=== PATIENT | female | born 1970 | race Caucasian/White ===

== ENCOUNTER 2019-11-29 21:52 | Observation (INO) | payer MEDICARE, MEDICAID, SELFPAY ==
--- NOTE | ~2019-11-29 | US_ITS ---
EXAMINATION: US carotid duplex BI DATE: 11/30/2019 11:01 INDICATION: Weakness, sudden onset dizziness/presyncope, left shoulder pain TECHNIQUE: Grayscale, color Doppler, and pulsed Doppler images of the cervical carotid arteries were obtained. The degree of vessel stenosis is placed in one of the following categories: normal, <50%, 5 0-69%, >=70% but less than near-occlusion, near-occlusion, or total occlusion. Note that percent sten osis relative to normal distal artery lumen diameter is indirectly measured from velocity measurement s as described by Pancho, et al. Radiology 2003; 229:340-346. COMPARISON: None. FINDINGS: RIGHT: The right common carotid artery (CCA) peak systolic velocity (PSV) is 72 cm/s. The right internal car otid artery (ICA) PSV is 46 cm/s. The right ICA end-diastolic velocity (EDV) is 24 cm/s. The right IC A/CCA PSV ratio is 0.6. Grayscale and color Doppler images of the straight no appreciable stenosis or plaque in the ICA. The external carotid artery (ECA) PSV is 76 cm/s. There is antegrade flow in the right vertebral artery. LEFT: The left CCA PSV is 63 cm/s. The left ICA PSV is 54 cm/s. The left ICA EDV is 26 cm/s. The left ICA/C CA PSV ratio is 0.9. Grayscale and color Doppler images demonstrate no appreciable stenosis or plaque in the ICA. The ECA PSV is 90 cm/s. There is antegrade flow in the left vertebral artery. IMPRESSION: 1. No appreciable plaque or stenosis in the right internal carotid artery. 2. No appreciable plaque or stenosis in the left internal carotid artery. Reviewed, dictated and finalized at location A. ER ROD MILL
--- NOTE | ~2019-11-29 | XR_ITS ---
EXAMINATION: XR chest 2V DATE: 11/29/2019 23:09 INDICATION: Near syncope, dizziness TECHNIQUE: AP and lateral views of the chest are obtained. COMPARISON: None available FINDINGS: The lungs are free of acute opacities. There is no pleural effusion or pneumothorax. The ca rdiomediastinal silhouette is normal. There is mild thoracic spondylosis. Healed left-sided rib fract ures are noted. IMPRESSION: 1. No acute cardiopulmonary abnormality. Reviewed, dictated and finalized at location A. IT NEGOTIATOR
--- NOTE | ~2019-11-29 | CT_ITS ---
EXAMINATION: CT brain wo con DATE: 11/30/2019 02:15 INDICATION: Dizziness. TECHNIQUE: Computed tomography (CT) of the head was performed without intravenous contrast. The mA wa s adjusted according to patient size. Iterative reconstruction technique was employed. The dose-lengt h product was 529.67 mGy-cm. COMPARISON: None FINDINGS: There is no intracranial hemorrhage, acute infarction, or abnormal intracranial mass lesion . The ventricles are normal in size. The paranasal sinuses are clear. The mastoid air cells are kamala l. IMPRESSION: 1. Normal brain. Reviewed, dictated and finalized at location A. TOZOOLOGIST IMPRESSION: 1. Normal brain.
--- NOTE | ~2019-11-29 | XR_ITS ---
EXAMINATION: XR shoulder LT min 2V INDICATION: Left shoulder pain TECHNIQUE: Four views of the left shoulder are obtained. COMPARISON: None available FINDINGS: Bone alignment is normal. There is no acute fracture. There is a questionable lucent lesion with sclerotic margins involving the body of the scapula. Healed left-sided rib fractures are noted. IMPRESSION: 1. No acute osseous abnormality. 2. Questionable lucent lesion of the scapular body with sclerotic margin. Follow-up with CT is recomm ended. Reviewed, dictated and finalized at location A. DE ACCOUNT EXECUTIVE IMPRESSION: 1. No acute osseous abnormality. 2. Questionable lucent lesion of the scapular body with sclerotic margin. Follo w-up with CT is recommended.
--- NOTE | 2019-11-29 21:58 | ED.DIZZY ---
HPI - Dizziness General Chief Complaint: Dizziness Stated Complaint: near syncope Time Seen by Provider: 11/29/19 21:55 Source: patient and RN notes reviewed Mode of arrival: EMS Limitations: no limitations History of Present Illness HPI Narrative: Pt is a 49 y/o female who presents to the ED, via EMS from [facility], with c/o sudden onset dizziness that began earlier afternoon. Per nurse, pt was at the office to take her medications and she began to feel dizzy. Pt sat to the floor, but denies a syncopal episode. Pt denies a recent use of abx and any injuries. Pt also reports weakness, left shoulder pain, and chronic diarrhea, but denies CP, SOB, nausea, and ABD pain. MD elicited complaint: dizziness Onset (ago): hour(s) Timing: sudden onset Description: near-syncope Associated symptoms: weakness and other (chronic diarrhea, left shoulder pain) Related Data Home Medications Medication Instructions Recorded Confirmed atorvastatin 80 mg PO DAILY 11/30/19 11/30/19 citalopram 20 mg PO DAILY 11/30/19 11/30/19 hydroxyzine HCl 25 mg PO BID PRN 11/30/19 11/30/19 lisinopril 20 mg PO DAILY 11/30/19 11/30/19 melatonin 5 mg PO HS PRN 11/30/19 11/30/19 metformin 500 mg PO BID 11/30/19 11/30/19 naproxen 500 mg PO BID PRN 11/30/19 11/30/19 trazodone 50 mg PO HS 11/30/19 11/30/19 triamcinolone acetonide 1 applic TOPICAL BID PRN 11/30/19 11/30/19 Allergies Allergy/AdvReac Type Severity Reaction Status Date / Time amoxicillin Allergy Unknown Unknown Verified 11/29/19 22:20 hydromorphone Allergy Unknown Unknown Verified 11/29/19 22:20 Sulfa (Sulfonamide Allergy Unknown Unknown Verified 11/29/19 22:20 Antibiotics) Review of Systems Review of Systems: All systems reviewed & are unremarkable except as noted in HPI and below Cardiovascular: Cardiovascular: Denies chest pain Respiratory: Respiratory: Denies dyspnea Gastrointestinal: Gastrointestinal: Denies abdominal pain, Reports diarrhea (chronic) and Denies nausea Musculoskeletal: Musculoskeletal: Reports other (left shoulder pain) Neurologic: Reports dizziness, Denies syncope and Reports weakness PMFSH Past Medical History Medical History (Updated 11/30/19 @ 07:12 by Sirisha Cook MD) Depression Diabetes Diverticulitis Hyperlipidemia Pancreatitis Ventral hernia Surgical History Surgical History (Updated 11/29/19 @ 22:10 by Latasha Galindo) H/O hernia repair History of pancreatectomy Hx of cholecystectomy Family History Family History (Updated 04/27/19 @ 10:36 by DOCTOR UNKNOWN) Mother Family history of thyroid disease Diabetes mellitus Hypertension Family history of cardiovascular disease Family history of malignant neoplasm of thyroid Father Diabetes mellitus Other Family history of gout Social History Social History Smoking status: Never smoker Alcohol intake: never Substance use: never Gender identity (if verbalized by the patient): Female Spiritual care concerns: No Agree to blood products: Yes Exam Narrative: Exam Narrative: GENERAL: Well-appearing, well-nourished, and in no acute distress. HEAD: Normocephalic, atraumatic EYES: PERRLA and EOMI, conjunctiva clear without discharge EARS: TM's clear bilaterally without erythema or dullness NOSE: Nares clear, no rhinorrhea or epistaxis THROAT:Mucous membranes moist, Oropharynx normal without erythema, exudate, peritonsillar swelling or fluctuance NECK: Supple, without lymphadenopathy or mass RESPIRATORY: No respiratory distress, Airway patent, Respirations non-labored, Clear to auscultation without rales, rhonchi or wheeze HEART: Regular rate and rhythm. No murmur heard. Normal peripheral pulses. ABDOMEN: Soft, nontender, nondistended, normal active bowel sounds. No masses. No rebound or guarding, No organomegaly. old mid abdominal scar EXTREMITIES: No edema, normal strength with full range of motion. SKIN: Warm, dry, normal color without rash NEURO
[2019-11-29 22:00] VITALS: BP 123/76; PULSE 57; RESP 12; TEMP 36.7; O2SAT 98
--- NOTE | 2019-11-29 22:13 | ECG_ITS ---
Measurements Intervals [place] Rate: 59 P: 54 MA: 178 QRS: -16 QRSD: 86 T: 3 QT: 423 QTc: 420 Interpretive Statements SINUS BRADYCARDIA NONSPECIFIC ST & T-WAVE ABNORMALITY- ANT/INF LEADS BASELINE ARTIFACT- I, II, III, V1 BORDERLINE ECG Electronically Signed On 11-30-2019 7:01:31 FOOD QUALITY TECHNICIAN by Will Smallwood D.O.
[2019-11-29 22:29] LABS: Basophils Absolute Auto 0.1 K/mm3 (0.0-0.1); Basophils Percent Auto 0.8 % (0.2-1.2); Eosinophils Absolute Auto 0.2 K/mm3 (0-0.3); Eosinophils Percent Auto 2.1 % (0-4.4); Hematocrit 36.2 % (37.0-47.0); Hemoglobin 11.2 g/dL (12.0-15.0); Immature Granulocyte Absolute 0.02 K/mm3 (0.00-0.031); Immature Granulocyte Percent A 0.2 % (0-0.5); Lymphocytes Absolute Auto 2.71 K/mm3 (0.9-3.2); Mean Corpuscular HGB Conc 30.9 g/dl (32-36); Mean Corpuscular Hemoglobin 25.9 pg (26-34); Mean Corpuscular Volume 83.8 fl (80-100); Mean Platelet Volume 10.1 fl (7.4-10.4); Monocytes Absolute Auto 0.6 K/mm3 (0.1-0.6); Monocytes Percent Auto 6.6 % (2.6-8.5); Neutrophils Absolute Auto 4.9 K/mm3 (1.3-6.7); Neutrophils Percent Auto 58.3 % (45.5-73.1); Platelet Count Result 264 k/mm3 (150-375); Red Blood Count 4.32 M/mm3 (4.2-5.4); Red Cell Distribution Width 14.7 % (11.5-14.5); White Blood Count 8.5 K/mm3 (4.5-10.0)
[2019-11-29] MEDS: ONDANSETRON INJ 4 MG/2 ML VIAL IV PUSH (22:30)
[2019-11-29 22:39] LABS: INR 1.1; Partial Thromboplastin Time 28.2 SECONDS (22.3-36.8); Prothrombin Time 13.4 Seconds (11.1-14.7)
[2019-11-29 22:41] LABS: Alanine Aminotransferase 15 U/L (4-35); Albumin Level 3.9 g/dL (3.5-5.1); Alkaline Phosphatase 99 U/L (38-126); Aspartate Amino Transferase 21 U/L (14-36); Bilirubin,Total 0.5 mg/dL (0.2-1.3); Blood Urea Nitrogen 5 mg/dL (7-17); Calcium 8.2 mg/dL (8.4-10.2); Carbon Dioxide 22 mmol/L (22-30); Chloride 96 mmol/L (98-107); Estimated Glomerular Filt Rate > 60; Glucose 223 mg/dL (65-105); Magnesium 0.9 mg/dL (1.6-2.3); Potassium 3.5 mmol/L (3.4-5.0); Sodium 138 mmol/L (137-145)
[2019-11-29 22:48] VITALS: BP 113/85; BP 118/87; BP 120/107; PULSE 60; PULSE 70
[2019-11-29 22:52] LABS: Add Urine Microscopic? YES; Appearance Urine Clear (Clear); Bacteria Urine Trace /hpf; Bilirubin Urine Negative (Negative); Blood Urine Negative (Negative); Color Urine Yellow (Yellow); Glucose Urine UA Negative (Negative); Ketones Urine Negative (Negative); Leukocyte Esterase Ur Trace LEU/UL (Negative); Mucus Urine Rare /lpf; Nitrate Urine Negative (Negative); Protein Urine Negative (Negative); RBC Urine 0-2 /hpf (0-2); Specific Grav Ur 1.011 (1.001-1.035); Squamous Epithelial Cell Urine Rare /hpf (Few); Urobilinogen Urine Negative mg/dL (<2.0); WBC Urine 0-3 /hpf
[2019-11-29 23:19] VITALS: BP 113/85; PULSE 70; RESP 11; O2SAT 100
[2019-11-30] VITALS (7 sets, daily range): BP systolic 84–138; BP diastolic 59–95; PULSE 49–56; RESP 10–20; TEMP 36.1–36.7; O2SAT 97–99; BMI 29.5
[2019-11-30] MEDS: LACTATED RINGERS 1,000 ML 999 ML IV CONT ×2 (00:36→02:45)
[2019-11-30] MEDS: MAGNESIUM SULF 4 GM/WATER100ML 4 GM/100 ML BAG IVPB (00:36)
[2019-11-30 04:51] LABS: Magnesium 2.5 mg/dL (1.6-2.3)
[2019-11-30 05:01] LABS: Amphetamine Screen Urine Negative (Negative); Barbiturate Screen Urine Negative (Negative); Benzodiazepines Screen Urine Negative (Negative); Cannabinoid Screen Urine Negative (Negative); Cocaine Screen Urine Negative (Negative); Methadone Screen Urine Negative (Negative); Opiate Screen Urine Negative (Negative); Phencyclidine Screen Urine Negative (Negative)
--- NOTE | 2019-11-30 05:16 | ADMGEN ---
This patient, Ratna Hayden, was admitted to 3 [facility] Surg Room 304-01. Patient/family oriented to hospital policies and general routines including ID bracelet, bed and alarms, visiting hours, pain management, procedures, bathroom and other care routines, personal items, smoking policy, room service/diet, and visiting hours. Valuables list has been completed. Information on how to activate the Rapid Response Team has been discussed. Patient/Family are encouraged to report perceived risks to care and to ask questions if they do not understand what they are told or what they should do.
[2019-11-30] MEDS: metFORMIN HCL XR 500 MG TAB.SR.24H PO (09:17)
[2019-11-30] MEDS: ATORVASTATIN 40 MG TABLET 80 MG PO (09:17)
[2019-11-30] MEDS: CITALOPRAM HYDROBROMIDE 20 MG TABLET PO (09:18)
[2019-11-30] MEDS: lisinopriL 20 MG TABLET PO (09:18)
[2019-11-30 09:38] LABS: Blood Urea Nitrogen 4 mg/dL (7-17); Calcium 8.2 mg/dL (8.4-10.2); Carbon Dioxide 23 mmol/L (22-30); Chloride 101 mmol/L (98-107); Estimated CRCL calculation 65 ml/min; Estimated Glomerular Filt Rate > 60; Glucose 130 mg/dL (65-105); Potassium 3.6 mmol/L (3.4-5.0); Sodium 138 mmol/L (137-145)
[2019-11-30 09:40] LABS: Glucose Point of Care 132 (65-105)
[2019-11-30 14:05] LABS: Glucose Point of Care 123 (65-105)
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
== END 2019-11-30 17:00 | disposition home or self-care (01) ==
LOC: ANHED 22:15 → ANH3MEDSUR 11-30 04:16
PROVIDERS: Physician Assistant; Admitting Provider Family Medicine; Emergency Provider General Practice; PCP Internal Medicine; Visit Provider Internal Medicine
DX: R42 Dizziness and giddiness (principal); R55 Syncope and collapse; I95.9 Hypotension, unspecified; D64.9 Anemia, unspecified; E11.9 Type 2 diabetes mellitus without complications; I10 Essential (primary) hypertension; E78.5 Hyperlipidemia, unspecified; F41.9 Anxiety disorder, unspecified; F32.9 Major depressive disorder, single episode, unspecified; R19.7 Diarrhea, unspecified; M25.512 Pain in left shoulder; Z79.84 Long term (current) use of oral hypoglycemic drugs; Z79.899 Other long term (current) drug therapy
CPT/HCPCS: 36415; 70450; 71046; 73030; 80048; 80053; 80307; 81001; 81025; 83735; 85025; 85610; 85730; 93005; 93880; 96365; 96375; 99285; A9270; G0378; J0131; J2405; J3475; J7120

== ENCOUNTER 2019-12-09 19:02 | Emergency (ER) | payer MEDICARE, MEDICAID, SELFPAY ==
--- NOTE | ~2019-12-09 | CT_ITS ---
EXAMINATION: CT abdomen pelvis wo con DATE: 12/09/2019 19:45 INDICATION: Abdominal pain for one day. Diarrhea. TECHNIQUE: Computed tomography (CT) of the abdomen and pelvis was performed without intravenous contr ast. The dose-length product was 644.96 mGy-cm. Automated exposure control and iterative reconstructi on technique were employed. COMPARISON: None. FINDINGS: Lung bases are unremarkable. Heart size normal. No significant pleural or pericardial effus ion. Moderate size hiatal hernia. There is a widemouth ventral abdominal wall hernia containing nonob structed bowel. No significant pleural or pericardial effusion. The liver, spleen, pancreas, adrenal glands and kidneys are unremarkable. No renal/ureteral stones. M ild nonspecific bilateral perinephric stranding. Bladder is decompressed. There is bladder wall thick ening with mild perivesical fatty infiltration, suspicious for cystitis. No acute bone or joint abnor mality. No evidence for bowel obstruction. Colonic diverticula without evidence for diverticulitis. N o significant vascular abnormality. No lymphadenopathy. IMPRESSION: 1. Bladder wall thickening with mild perivesical fatty infiltration, suspicious for cystitis. Correla te clinically. 2: Widemouth ventral abdominal wall hernia containing nonobstructed bowel. 3: Moderate hiatal hernia. Reviewed, dictated and finalized at location A. BOARD POSTER IMPRESSION: 1. Bladder wall thickening with mild perivesical fatty infiltration, suspicious for cystitis. Correlate clinically. 2: Widemouth ventral abdominal wall hernia containing nonobstructed bowel. 3: Moderate hiatal hernia.
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
[2019-12-09 19:11] VITALS: BP 118/75; PULSE 74; RESP 14; TEMP 37.4; O2SAT 97
--- NOTE | 2019-12-09 19:13 | ECG_ITS ---
Measurements Intervals [place] Rate: 71 P: 27 ND: 145 QRS: 5 QRSD: 75 T: -1 QT: 347 QTc: 379 Interpretive Statements SINUS RHYTHM BORDERLINE ST-T WAVE ABNORMALITY- ANT/INF LEADS BASELINE WANDER- V2 BORDERLINE ECG Electronically Signed On 12-10-2019 8:36:06 NYLON WINDER by Will Smallwood D.O.
[2019-12-09 19:43] LABS: Basophils Percent Auto 0.4 % (0.2-1.2); Eosinophils Percent Auto 0.3 % (0-4.4); Hematocrit 33.2 % (37.0-47.0); Hemoglobin 10.3 g/dL (12.0-15.0); Immature Granulocyte Absolute 0.04 K/mm3 (0.00-0.031); Immature Granulocyte Percent A 0.4 % (0-0.5); Lymphocytes Absolute Auto 1.13 K/mm3 (0.9-3.2); Lymphocytes Percent Auto 10.6 % (18.3-44.2); Mean Corpuscular Hemoglobin 26.4 pg (26-34); Mean Corpuscular Volume 85.1 fl (80-100); Mean Platelet Volume 9.4 fl (7.4-10.4); Monocytes Absolute Auto 1.2 K/mm3 (0.1-0.6); Monocytes Percent Auto 10.8 % (2.6-8.5); Neutrophils Absolute Auto 8.3 K/mm3 (1.3-6.7); Neutrophils Percent Auto 77.5 % (45.5-73.1); Platelet Count Result 298 k/mm3 (150-375); Red Cell Distribution Width 14.6 % (11.5-14.5); White Blood Count 10.6 K/mm3 (4.5-10.0)
--- NOTE | 2019-12-09 19:43 | PC.NURSE ---
pt taken to CT Scan
[2019-12-09 19:57] LABS: Alanine Aminotransferase 12 U/L (4-35); Albumin Level 3.8 g/dL (3.5-5.1); Alkaline Phosphatase 90 U/L (38-126); Aspartate Amino Transferase 16 U/L (14-36); Bilirubin,Total 0.5 mg/dL (0.2-1.3); Blood Urea Nitrogen 9 mg/dL (7-17); Calcium 8.7 mg/dL (8.4-10.2); Carbon Dioxide 31 mmol/L (22-30); Chloride 95 mmol/L (98-107); Estimated CRCL calculation 58 ml/min; Estimated Glomerular Filt Rate 58; Glucose 314 mg/dL (65-105); Lipase 20 U/L (23-300); Potassium 5.1 mmol/L (3.4-5.0); Sodium 135 mmol/L (137-145)
[2019-12-09 20:11] LABS: Add Urine Microscopic? YES; Appearance Urine Cloudy (Clear); Bacteria Urine Trace /hpf; Bilirubin Urine Negative (Negative); Blood Urine 1+ (Negative); Color Urine Yellow (Yellow); Glucose Urine UA 2+ mg/dL (Negative); Ketones Urine Negative (Negative); Leukocyte Esterase Ur 3+ LEU/UL (Negative); Nitrate Urine Negative (Negative); Protein Urine 2+ mg/dL (Negative); Specific Grav Ur 1.014 (1.001-1.035); Squamous Epithelial Cell Urine Few /hpf (Few); WBC Clumps Urine Present /HPF; WBC Urine >75 /hpf
[2019-12-09] MEDS: SODIUM CHLORIDE 0.9% IV 1,000 ML 999 ML IV CONT (20:46)
[2019-12-09] MEDS: PROMETHAZINE HCL 25 MG/ML AMPUL 12.5 MG IV PUSH (20:46)
[2019-12-09] MEDS: KETOROLAC 30 MG/ML VIAL (*BKC) IV PUSH (20:46)
[2019-12-09 21:31] VITALS: BP 96/75; PULSE 72; RESP 16; O2SAT 100
[2019-12-09] MEDS: LACTATED RINGERS 1,000 ML 999 ML IV CONT (22:20)
[2019-12-09 22:50] VITALS: BP 111/77; PULSE 66; RESP 14
== END 2019-12-09 22:51 | disposition home or self-care (01) ==
PROVIDERS: Emergency Provider Emergency Medicine; PCP Internal Medicine
DX: N30.01 Acute cystitis with hematuria (principal); E11.65 Type 2 diabetes mellitus with hyperglycemia; E78.5 Hyperlipidemia, unspecified; I10 Essential (primary) hypertension; F32.9 Major depressive disorder, single episode, unspecified; Z79.84 Long term (current) use of oral hypoglycemic drugs; K43.9 Ventral hernia without obstruction or gangrene; K44.9 Diaphragmatic hernia without obstruction or gangrene; R94.31 Abnormal electrocardiogram [ECG] [EKG]
CPT/HCPCS: 36415; 74176; 80053; 81001; 83690; 85025; 87077; 87086; 87088; 87186; 93005; 96361; 96365; 96375; 99284; J0696; J1885; J2550; J7030; J7120

== ENCOUNTER 2020-03-27 12:11 | Outpatient (CLI) | payer MEDICARE, MEDICAID, SELFPAY ==
[2020-03-27 13:15] LABS: Add Urine Microscopic? YES; Appearance Urine Cloudy (Clear); Bacteria Urine 4+ /hpf; Bilirubin Urine Negative (Negative); Blood Urine Negative (Negative); Color Urine Red (Yellow); Glucose Urine UA Negative (Negative); Ketones Urine Negative (Negative); Leukocyte Esterase Ur 3+ LEU/UL (Negative); Mucus Urine Rare /lpf; Nitrate Urine Negative (Negative); Protein Urine Negative (Negative); Specific Grav Ur 1.012 (1.001-1.035); Squamous Epithelial Cell Urine Many /hpf (Few); Urobilinogen Urine Negative mg/dL (<2.0)
== END 2020-03-27 12:12 | disposition home or self-care (01) ==
PROVIDERS: PCP Family Medicine; Visit Provider Family Medicine
DX: R30.9 Painful micturition, unspecified (principal)
CPT/HCPCS: 81001

== ENCOUNTER 2020-06-06 19:26 | Emergency (ER) | payer MEDICARE, MEDICAID, SELFPAY ==
--- NOTE | ~2020-06-06 | CT_ITS ---
EXAMINATION: CT brain wo con DATE: 06/06/2020 20:16 INDICATION: Lightheadedness. Dizziness. TECHNIQUE: Computed tomography (CT) of the head was performed without intravenous contrast. Sagittal and coronal reconstructions were performed. The mA was adjusted according to patient size. Iterative reconstruction technique was employed. The dose-length product was 529.67 mGy-cm. COMPARISON: head CT dated 11/30/2019 FINDINGS: No acute intracranial hemorrhage, acute infarction or abnormal extra axial fluid collection. Ventric les are normal and symmetric. No mass/mass effect. Opacification of a right-sided Bryant cell. Remain xiomara of the paranasal sinuses are clear. The orbits and mastoid air cells are normal. IMPRESSION: 1. No acute intracranial process. Reviewed, dictated and finalized at location A.
--- NOTE | ~2020-06-06 | XR_ITS ---
EXAMINATION: XR chest 1V portable DATE: 06/06/2020 20:21 INDICATION: Dizziness. Hypertension. Diabetes. TECHNIQUE: frontal view of the chest was obtained. COMPARISON: Chest radiograph dated 11/29/2019 FINDINGS: The lungs remain clear with no focal airspace opacities, pulmonary edema, pleural effusion or pneumot horax. The cardiomediastinal silhouette is normal. Couple old healed bilateral rib fractures. IMPRESSION: 1. No acute cardiopulmonary disease. Reviewed, dictated and finalized at location A.
[2020-06-06 19:38] VITALS: BP 129/90; PULSE 69; RESP 20; TEMP 36.9; O2SAT 98
--- NOTE | 2020-06-06 19:44 | ECG_ITS ---
Measurements Intervals [place] Rate: 53 P: -9 SD: 125 QRS: 9 QRSD: 80 T: 14 QT: 431 QTc: 408 Interpretive Statements SINUS BRADYCARDIA BORDERLINE ST-T WAVE ABNORMALITY- INFERIOR LEADS BORDERLINE ECG Electronically Signed On 06-07-2020 6:57:51 CDT by Will Smallwood D.O.
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
[2020-06-06 20:16] LABS: Basophils Absolute Auto 0.1 K/mm3 (0.0-0.1); Basophils Percent Auto 0.5 % (0.2-1.2); Eosinophils Percent Auto 0.2 % (0-4.4); Hematocrit 39.4 % (37.0-47.0); Hemoglobin 12.7 g/dL (12.0-15.0); Immature Granulocyte Absolute 0.05 K/mm3 (0.00-0.031); Immature Granulocyte Percent A 0.4 % (0-0.5); Lymphocytes Absolute Auto 1.17 K/mm3 (0.9-3.2); Lymphocytes Percent Auto 8.8 % (18.3-44.2); Mean Corpuscular HGB Conc 32.2 g/dl (32-36); Mean Corpuscular Hemoglobin 27.9 pg (26-34); Mean Corpuscular Volume 86.4 fl (80-100); Monocytes Absolute Auto 0.9 K/mm3 (0.1-0.6); Monocytes Percent Auto 6.7 % (2.6-8.5); Neutrophils Percent Auto 83.4 % (45.5-73.1); Platelet Count Result 305 k/mm3 (150-375); Red Blood Count 4.56 M/mm3 (4.2-5.4); Red Cell Distribution Width 14.3 % (11.5-14.5); White Blood Count 13.2 K/mm3 (4.5-10.0)
[2020-06-06 20:26] LABS: INR 1.1; Prothrombin Time 13.8 Seconds (11.1-14.7)
[2020-06-06 20:27] LABS: Partial Thromboplastin Time 27.6 SECONDS (22.3-36.8)
[2020-06-06 20:28] LABS: Alanine Aminotransferase 23 U/L (4-35); Albumin Level 4.4 g/dL (3.5-5.1); Alkaline Phosphatase 100 U/L (38-126); Anion Gap 9 mmol/L (8-16); Aspartate Amino Transferase 30 U/L (14-36); Bilirubin,Total 0.5 mg/dL (0.2-1.3); Blood Urea Nitrogen 20 mg/dL (7-17); Calcium 9.7 mg/dL (8.4-10.2); Carbon Dioxide 29 mmol/L (22-30); Chloride 100 mmol/L (98-107); Estimated CRCL calculation 34 ml/min; Estimated Glomerular Filt Rate 36; Glucose 307 mg/dL (65-105); Potassium 4.3 mmol/L (3.4-5.0); Sodium 138 mmol/L (137-145)
[2020-06-06] MEDS: SODIUM CHLORIDE 0.9% IV 1,000 ML 999 ML IV CONT ×2 (20:31→21:49)
[2020-06-06 20:40] LABS: Troponin I < 0.012 ng/mL (0.000-0.034)
[2020-06-06 21:03] VITALS: BP 114/72; PULSE 57
[2020-06-06 21:04] VITALS: BP 127/73; PULSE 69
[2020-06-06 21:06] VITALS: BP 132/116; PULSE 71
[2020-06-06 21:32] LABS: Add Urine Microscopic? YES; Appearance Urine Cloudy (Clear); Bacteria Urine 1+ /hpf; Bilirubin Urine Negative (Negative); Blood Urine Negative (Negative); Color Urine Yellow (Yellow); Glucose Urine UA Negative (Negative); Hyaline Casts Urine 20-29 /lpf; Ketones Urine Negative (Negative); Leukocyte Esterase Ur 3+ LEU/UL (Negative); Mucus Urine Few /lpf; Nitrate Urine Negative (Negative); Protein Urine 1+ mg/dL (Negative); Specific Grav Ur 1.018 (1.001-1.035); Squamous Epithelial Cell Urine Many /hpf (Few); Urobilinogen Urine Negative mg/dL (<2.0); WBC Urine >75 /hpf
[2020-06-06 22:16] LABS: Lactic Acid Reflex 1.1 mmol/L (0.7-2.1)
[2020-06-06 23:19] VITALS: BP 126/78; PULSE 48; RESP 16; O2SAT 98
[2020-06-06 23:34] LABS: Glucose Point of Care 187 (65-105)
[2020-06-06 23:51] VITALS: BP 140/63; PULSE 51; RESP 19; TEMP 36.8; O2SAT 100
== END 2020-06-06 23:53 | disposition home or self-care (01) ==
PROVIDERS: Emergency Provider Emergency Medicine; PCP Family Medicine
DX: N39.0 Urinary tract infection, site not specified (principal); E11.9 Type 2 diabetes mellitus without complications; E78.5 Hyperlipidemia, unspecified; I10 Essential (primary) hypertension; F32.9 Major depressive disorder, single episode, unspecified; Z79.84 Long term (current) use of oral hypoglycemic drugs
CPT/HCPCS: 36415; 70450; 71045; 80053; 81001; 81025; 82948; 83605; 84484; 85025; 85610; 85730; 87040; 87086; 87088; 93005; 96361; 96365; 99284; J0696; J7030

== ENCOUNTER 2020-07-06 12:57 | Outpatient (CLI) | payer MEDICARE, MEDICAID, SELFPAY | END 2020-07-06 12:58 | disposition home or self-care (01) | LOC: ANHAUDIO 12:59 | PROVIDERS: PCP Family Medicine; Visit Provider Nurse Practitioner Family | DX: H91.90 Unspecified hearing loss, unspecified ear (principal) | CPT/HCPCS: 92557; 92567 ==

== ENCOUNTER 2020-07-19 09:31 | Outpatient (RCR) | payer MEDICAID, SELFPAY | END 2020-07-19 23:59 | disposition home or self-care (01) | LOC: ANHAUDIO 09:31 | PROVIDERS: PCP Family Medicine; Visit Provider Nurse Practitioner Family | DX: Z46.1 Encounter for fitting and adjustment of hearing aid (principal) | CPT/HCPCS: V5160; V5261 ==

== ENCOUNTER 2020-11-20 07:37 | Outpatient (RCR) | payer MEDICARE, MEDICAID, SELFPAY | END 2020-11-20 23:59 | disposition home or self-care (01) | LOC: ANHAUDIO 07:37 | PROVIDERS: PCP Family Medicine; Visit Provider Nurse Practitioner Family | DX: Z46.1 Encounter for fitting and adjustment of hearing aid (principal) | CPT/HCPCS: 99199 ==

== ENCOUNTER 2021-07-29 16:16 | Emergency (ER) | payer MEDICARE, MEDICAID, SELFPAY ==
[2021-07-29 16:22] VITALS: BP 161/95; PULSE 58; RESP 18; TEMP 36.7; O2SAT 99
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
[2021-07-29 17:46] LABS: Basophils Percent Auto 0.5 % (0.2-1.2); Eosinophils Absolute Auto 0.2 K/mm3 (0-0.3); Eosinophils Percent Auto 2.6 % (0-4.4); Hematocrit 37.7 % (37.0-47.0); Hemoglobin 12.3 g/dL (12.0-15.0); Immature Granulocyte Absolute 0.02 K/mm3 (0.00-0.031); Immature Granulocyte Percent A 0.3 % (0-0.5); Lymphocytes Absolute Auto 2.62 K/mm3 (0.9-3.2); Mean Corpuscular HGB Conc 32.6 g/dl (32-36); Mean Corpuscular Volume 88.9 fl (80-100); Mean Platelet Volume 9.7 fl (7.4-10.4); Monocytes Absolute Auto 0.5 K/mm3 (0.1-0.6); Neutrophils Absolute Auto 4.6 K/mm3 (1.3-6.7); Neutrophils Percent Auto 57.6 % (45.5-73.1); Platelet Count Result 283 k/mm3 (150-375); Red Blood Count 4.24 M/mm3 (4.2-5.4); Red Cell Distribution Width 13.4 % (11.5-14.5)
[2021-07-29 17:50] LABS: Add Urine Microscopic? YES; Appearance Urine Clear (Clear); Bacteria Urine 1+ /hpf; Bilirubin Urine Negative (Negative); Blood Urine Negative (Negative); Color Urine Straw (Yellow); Glucose Urine UA Negative (Negative); Ketones Urine Negative (Negative); Leukocyte Esterase Ur 2+ LEU/UL (Negative); Nitrate Urine Negative (Negative); Protein Urine Negative (Negative); RBC Urine 0-2 /hpf (0-2); Squamous Epithelial Cell Urine Rare /hpf (Few); Urobilinogen Urine Negative mg/dL (<2.0)
[2021-07-29 17:53] LABS: Specific Grav Ur 1.001 (1.001-1.035)
[2021-07-29 18:04] LABS: Acetaminophen < 10 ug/mL (10-30); Ethanol < 10 mg/dL (<10); Salicylate < 1.0 mg/dL (2-20)
[2021-07-29 18:09] LABS: Alanine Aminotransferase 12 U/L (4-35); Albumin Level 3.9 g/dL (3.5-5.1); Alkaline Phosphatase 78 U/L (38-126); Anion Gap 9 mmol/L (8-16); Aspartate Amino Transferase 21 U/L (14-36); Bilirubin,Total 0.4 mg/dL (0.2-1.3); Calcium 7.9 mg/dL (8.4-10.2); Carbon Dioxide 32 mmol/L (22-30); Chloride 101 mmol/L (98-107); Estimated CRCL calculation 63 ml/min; Estimated Glomerular Filt Rate > 60; Glucose 191 mg/dL (65-110); Lipase 43 U/L (23-300); Magnesium 0.8 mg/dL (1.6-2.3); Potassium 2.9 mmol/L (3.4-5.0); Sodium 142 mmol/L (137-145)
[2021-07-29 18:16] LABS: Amphetamine Screen Urine Negative (Negative); Barbiturate Screen Urine Negative (Negative); Benzodiazepines Screen Urine Negative (Negative); Cannabinoid Screen Urine Negative (Negative); Cocaine Screen Urine Negative (Negative); Methadone Screen Urine Negative (Negative); Opiate Screen Urine Negative (Negative); Phencyclidine Screen Urine Negative (Negative)
[2021-07-29] MEDS: MAGNESIUM SULF 2 GM/WATER 50ML 2 GM/50 ML BAG IVPB (18:44)
[2021-07-29 18:45] LABS: Blood Urea Nitrogen < 2 mg/dL (7-17)
[2021-07-29 20:00] VITALS: BP 144/80; PULSE 70; RESP 16; O2SAT 98
[2021-07-29 20:58] VITALS: BP 131/74; PULSE 63; RESP 20; O2SAT 98
--- NOTE | 2021-07-29 21:11 | PC.NURSE ---
pt. refused EKG.
--- NOTE | 2021-07-29 21:53 | PC.NURSE ---
jonathan espinoza - clinical case manager - pt is being sent here to [facility] for medical clearance for housing purposes only. pt is not si/hi and requesting to leave at this time. erp made aware.
--- NOTE | 2021-07-29 23:28 | PC.NURSE ---
this rn spoke with an [employer] sta[employer] state guardian per them Pt is currently in a safe place in the waiting area until the morning. Whenever you can contact their registered nurse hh case manager for a ride. Shai Craig [phone] .
--- NOTE | 2021-07-29 23:36 | PC.NURSE ---
paper coating supervisor notified and cab voucher will be provided for this patient in order for her to make it home safely.
--- NOTE | 2021-08-09 10:58 | PC.NURSE ---
LATE ENTRY This note is being entered to document information to the patient's record. The following information was omitted on [07/29/21], by [esperanza dhillon rn]. Stop time for potassium ivpb is 2309
== END 2021-07-29 22:02 | disposition left against medical advice (07) ==
PROVIDERS: Emergency Provider Emergency Medicine; PCP Family Medicine
DX: E83.42 Hypomagnesemia (principal); E87.6 Hypokalemia; E11.9 Type 2 diabetes mellitus without complications; E78.5 Hyperlipidemia, unspecified; I10 Essential (primary) hypertension; F32.A Depression, unspecified; Z90.410 Acquired total absence of pancreas; Z79.84 Long term (current) use of oral hypoglycemic drugs; Z79.899 Other long term (current) drug therapy
CPT/HCPCS: 36415; 80053; 80307; 81001; 83690; 83735; 84443; 85025; 87086; 87088; 96365; 96366; 99284; J3475; J3480; J7030; J7060

== ENCOUNTER 2022-07-23 13:25 | Outpatient (CLI) | payer OTHER, SELFPAY | END 2022-07-23 13:26 | disposition home or self-care (01) | LOC: ANHAUDASC 13:27 | PROVIDERS: PCP Family Medicine; Visit Provider Family Medicine | DX: H90.3 Sensorineural hearing loss, bilateral (principal) | CPT/HCPCS: 92557 ==

== ENCOUNTER 2022-12-15 09:31 | Outpatient (CLI) | payer OTHER, SELFPAY ==
--- NOTE | ~2022-12-15 | XR_ITS ---
Left Shoulder Technique: AP and scapular Y views were obtained. Clinical History: Pain COMPARISON: 11/29/2019 Findings: No fracture or dislocation is seen. Osseous alignment is anatomic. Inferomedial humeral hea d osteophyte is present. AC joint is intact. Soft tissues are unremarkable. Chronic left-sided rib fr acture deformities are unchanged. Impression: Mild to moderate glenohumeral joint degenerative change. Reviewed, dictated and finalized at location [facility] [place] [facility] Impression: Mild to moderate glenohumeral joint degenerative change.
== END 2022-12-15 09:32 | disposition home or self-care (01) ==
PROVIDERS: PCP Family Medicine; Visit Provider Nurse Practitioner Family
DX: M25.512 Pain in left shoulder (principal)
CPT/HCPCS: 73030

== ENCOUNTER 2024-06-01 13:02 | Emergency (ER) | payer MEDICARE, MEDICAID, SELFPAY ==
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
[2024-06-01 13:15] VITALS: BP 122/83; PULSE 70; RESP 14; TEMP 37.3; O2SAT 100
== END 2024-06-01 13:40 | disposition home or self-care (01) ==
PROVIDERS: Emergency Provider Nurse Practitioner Family; PCP Family Medicine
DX: H60.312 Diffuse otitis externa, left ear (principal); E11.9 Type 2 diabetes mellitus without complications; Z79.84 Long term (current) use of oral hypoglycemic drugs; E78.5 Hyperlipidemia, unspecified; I10 Essential (primary) hypertension; F32.A Depression, unspecified
CPT/HCPCS: 99213; G0463

== ENCOUNTER 2024-08-17 03:10 | Emergency (ER) | payer MEDICARE, SELFPAY ==
[2024-08-17] VITALS (7 sets, daily range): BP systolic 121–161; BP diastolic 79–94; PULSE 61–83; RESP 14–22; TEMP 36.6–36.7; O2SAT 93–98
--- NOTE | ~2024-08-17 | XR_ITS ---
Portable chest x-ray Comparison: 06/06/2020 Clinical History: Cough Findings: Lungs are clear, without focal consolidation or pleural effusion. Cardiomediastinal silho uette is stable. Bones and soft tissues are unremarkable. Impression: Clear lungs. Reviewed, dictated and finalized at location . Impression: Clear lungs.
--- NOTE | 2024-08-17 03:26 | ECG_ITS ---
Test Date: 2024-08-17 03:40:24 Measurements Intervals [place] Rate: 80 P: 16 WV: 152 QRS: -6 QRSD: 82 T: -9 QT: 383 QTc: 442 Interpretive Statements SINUS RHYTHM MODERATE T-WAVE ABNORMALITY, CONSIDER ANTERIOR ISCHEMIA [-0.1+ mV T WAVE IN V3/V4] No previous ECG available for comparison Electronically Signed On 08-17-2024 14:43:44 CDT by Mary Anne Cespedes M.D.
[2024-08-17] MEDS: IPRATROPIUM 0.5 MG/ALBUTEROL SULFATE 2.5 MG AMPUL.NEB 3 ML INHALATION (03:51)
[2024-08-17] MEDS: SODIUM CHLORIDE 0.9% IV 1,000 ML 999 ML IV CONT (04:05)
[2024-08-17] MEDS: BENZONATATE 100 MG CAPSULE 200 MG PO (04:05)
[2024-08-17 04:18] LABS: Basophils Percent Auto 0.5 % (0.2-1.2); Eosinophils Absolute Auto 0.2 K/mm3 (0-0.3); Eosinophils Percent Auto 3.2 % (0-4.4); Hematocrit 37.8 % (37.0-47.0); Hemoglobin 13.2 g/dL (12.0-15.0); Immature Granulocyte Absolute 0.01 K/mm3 (0.00-0.031); Immature Granulocyte Percent A 0.2 % (0-0.5); Lymphocytes Absolute Auto 2.09 K/mm3 (0.9-3.2); Lymphocytes Percent Auto 36.7 % (18.3-44.2); Mean Corpuscular HGB Conc 34.9 g/dl (32-36); Mean Corpuscular Hemoglobin 30.8 pg (26-34); Mean Corpuscular Volume 88.1 fl (80-100); Mean Platelet Volume 9.6 fl (7.4-10.4); Monocytes Absolute Auto 0.8 K/mm3 (0.1-0.6); Monocytes Percent Auto 13.2 % (2.6-8.5); Neutrophils Absolute Auto 2.6 K/mm3 (1.3-6.7); Neutrophils Percent Auto 46.2 % (45.5-73.1); Platelet Count Result 231 k/mm3 (150-375); Red Blood Count 4.29 M/mm3 (4.2-5.4); Red Cell Distribution Width 12.6 % (11.5-14.5); White Blood Count 5.7 K/mm3 (4.5-10.0)
[2024-08-17 04:35] LABS: Alanine Aminotransferase 12 U/L (6-35); Albumin Level 4.1 g/dL (3.5-5.1); Alkaline Phosphatase 93 U/L (38-126); Anion Gap 8 mmol/L (4-12); Aspartate Amino Transferase 20 U/L (14-36); Bilirubin,Total 0.4 mg/dL (0.2-1.3); Blood Urea Nitrogen 3 mg/dL (7-17); Calcium 8.8 mg/dL (8.4-10.2); Carbon Dioxide 30 mmol/L (22-30); Chloride 99 mmol/L (98-107); Estimated CRCL calculation 41 ml/min; Estimated Glomerular Filt Rate 51; Glucose 250 mg/dL (65-110); Magnesium 1.2 mg/dL (1.6-2.3); Sodium 137 mmol/L (137-145)
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
[2024-08-17 04:41] LABS: Strep Group A RT-PCR NOT DETECTED (Negative)
[2024-08-17 04:44] LABS: NT Pro B Type Natriuretic Pept 75 pg/mL (19.9-100); Troponin I < 0.012 ng/mL (0.000-0.034)
[2024-08-17 04:55] LABS: Influenza A QL RT-PCR Negative (Negative); Influenza B QL RT-PCR Negative (Negative); RSV RNA, RT-PCR Negative (Negative); SARS-CoV-2 RNA PCR Negative (Negative)
[2024-08-17 05:05] LABS: Add Urine Microscopic? YES; Appearance Urine Cloudy (Clear); Bacteria Urine 2+ /hpf; Bilirubin Urine Negative (Negative); Blood Urine Negative (Negative); Color Urine Yellow (Yellow); Glucose Urine UA Negative (Negative); Ketones Urine Negative (Negative); Leukocyte Esterase Ur 3+ LEU/UL (Negative); Nitrate Urine Negative (Negative); Non Pathogenic Casts 0-2; Protein Urine Negative (Negative); RBC Urine 0-2 /hpf (0-2); Specific Grav Ur 1.004 (1.001-1.035); Squamous Epithelial Cell Urine Many /hpf (Few); Urobilinogen Urine 0.2 mg/dL (<2.0); WBC Urine 21-50 /hpf (0-3)
[2024-08-17] MEDS: MAGNESIUM SULF 2 GM/WATER 50ML 2 GM/50 ML BAG IVPB (05:29)
[2024-08-17] MEDS: POTASSIUM CHLORIDE 20 MEQ PACKET (FOR LIQUID) 40 MEQ PO (05:30)
== END 2024-08-17 07:30 | disposition home or self-care (01) ==
PROVIDERS: Emergency Provider Emergency Medicine; PCP Family Medicine
DX: J06.9 Acute upper respiratory infection, unspecified (principal); N39.0 Urinary tract infection, site not specified; E83.42 Hypomagnesemia; E87.6 Hypokalemia; R06.02 Shortness of breath; Z20.822 Contact with and (suspected) exposure to COVID-19; I10 Essential (primary) hypertension; E11.9 Type 2 diabetes mellitus without complications; E78.5 Hyperlipidemia, unspecified; F32.A Depression, unspecified; Z91.410 Personal history of adult physical and sexual abuse; Z90.49 Acquired absence of other specified parts of digestive tract; Z79.899 Other long term (current) drug therapy; Z79.84 Long term (current) use of oral hypoglycemic drugs; R94.31 Abnormal electrocardiogram [ECG] [EKG]
CPT/HCPCS: 36415; 71045; 80053; 81001; 83735; 83880; 84484; 85025; 87086; 87637; 87651; 93005; 94640; 96361; 96365; 96366; 99284; A9270; J3475; J7030